=== PATIENT | male | born 1995 | race Caucasian/White ===

== ENCOUNTER 2025-07-18 13:41 | Emergency (ER) | payer MEDICAID ==
[~2025-07-18] VITALS: Ht 185.4 cm; Wt 149.7 kg
[2025-07-18 14:09] VITALS: TEMP 98.9
[2025-07-18] MEDS ORDERED: ONDANSETRON HCL/PF 4 MG/2 ML VIAL ONE (14:27)
[2025-07-18] MEDS: IV NS 0.9% 1,000 ML BAG IV ONE (14:35)
[2025-07-18] MEDS: ONDANSETRON HCL/PF 4 MG/2 ML VIAL IVP ONE (14:38)
[2025-07-18 14:49] LABS: PLATELET COUNT (AUTO) 296 K/uL (150-450); RED BLOOD CELL COUNT(AUTO) 5.00 MIL/uL (4.5-6.0); RED CELL DISTRIBUTION WIDTH 13.0 % (11.5-15.0); WHITE BLOOD COUNT (AUTO) 11.7 K/uL (4.3-11.0)
[2025-07-18 15:01] LABS: ASPARTATE AMINOTRANSFERASE 31 U/L (15-37); CALCIUM, SERUM 8.7 mg/dL (8.5-10.1); CREATININE 1.1 mg/dL (0.6-1.3); SODIUM SERUM 137 mmol/L (136-145); TOTAL PROTEIN, SERUM 7.6 g/dL (6.4-8.2); UREA NITROGEN, BLOOD 12 mg/dL (7-18)
[2025-07-18 15:04] LABS: INR 1.02 (0.91-1.10)
[2025-07-18] MEDS ORDERED: IOHEXOL-350 100 ML VIAL IV ONE (15:19)
[2025-07-18] MEDS ORDERED: CT SWABBABLE VALVE TRANS SET 1 EA INFUS.SET MC ONE (15:19)
[2025-07-18] MEDS ORDERED: IV NS 0.9% 250 ML IV ONE (15:19)
[2025-07-18 19:42] VITALS: BP 155/99; O2SAT 99
== END 2025-07-18 15:19 | disposition home or self-care (01) ==
LOC: ER 13:46
DX: B34.9 Viral infection, unspecified (principal); E66.9 Obesity, unspecified; R03.0 Elevated blood-pressure reading, without diagnosis of hypertension; R05.9 Cough, unspecified; R06.02 Shortness of breath; R07.9 Chest pain, unspecified; R09.81 Nasal congestion; R11.2 Nausea with vomiting, unspecified; R19.7 Diarrhea, unspecified; R74.01 Elevation of levels of liver transaminase levels; Z20.822 Contact with and (suspected) exposure to COVID-19
CPT/HCPCS: 99285; 96374; 71275; 71045; 96361; 87426; 93005; 87804 ×2; 85025; 80048; 80076; 85378; 36415; 84484; 85730; 82962; J2405; J7030; J7050; Q9967